=== PATIENT | female | born 1995 | race Caucasian/White ===

== ENCOUNTER 2020-09-04 14:17 | Emergency (ER) | payer BC, SELFPAY ==
--- NOTE | ~2020-09-04 | CT_ITS ---
EXAMINATION: CTA chest PE protocol DATE: 09/04/2020 15:49 INDICATION: Shortness of breath and right-sided back pain TECHNIQUE: Computed tomography (CT) pulmonary angiogram of the chest was performed with 100 mL Omnipa que-350 intravenous contrast. Additional 3D reconstructions utilizing coronal maximum intensity proje ction (MIP) were performed. Automated exposure control and iterative reconstruction technique were em ployed. The dose-length product was 227.94 mGy-cm. COMPARISON: None FINDINGS: Good contrast opacification of the pulmonary arteries. There is moderate streak artifact from dense c ontrast in the superior vena cava and right atrium. Minimal scattered respiratory motion artifact whi ch does not significantly limit evaluation. There are 3 part solid subpleural nodules in the right mi ddle lobe measuring between 7 mm and 9 mm in maximal diameters and one in the left lower lobe with mo re spiculated appearance measuring up to 11 mm with small amount of surrounding groundglass opacity i n the left lower lobe. There are a few additional scattered <4 mm bilateral pulmonary nodules. Minima l dependent atelectasis in the bilateral lower lobes. Normal variant azygos lobe and fissure in the r ight upper lung. Heart size is normal. No pericardial or pleural effusion. Thoracic aorta is normal i n caliber with no dissection. No pathologically enlarged thoracic lymphadenopathy. Small amount of re sidual thymic tissue with typical triangular configuration and mixed fat and soft tissue density in t he anterior mediastinum. Upper abdomen and bones are unremarkable. IMPRESSION: 1. No pulmonary embolism. 2. A few scattered pulmonary nodules including the 3 largest subpleural nodules measuring between 7 m m and 11 mm, one at the left lower lobe and 3 in the right middle lobe which are most likely infectio us/inflammatory in etiology. Malignancy would be highly unlikely given patient age. Reviewed, dictated and finalized at location H. TECH IMPRESSION: 1. No pulmonary embolism. 2. A few scattered pulmonary nodules including the 3 largest subpleural nodules measuring between 7 mm and 11 mm, one at the left lower lobe and 3 in the righ t middle lobe which are most likely infectious/inflammatory in etiology. Malign rosalina would be highly unlikely given patient age.
--- NOTE | ~2020-09-04 | US_ITS ---
EXAMINATION: US right upper quadrant DATE: 09/04/2020 14:58 INDICATION: Right upper quadrant abdominal pain TECHNIQUE: Multiple grayscale and Doppler ultrasound images of the abdomen were obtained. COMPARISON: None FINDINGS: The pancreatic head and body are normal in appearance. The pancreatic tail is not visualized. Liver has normal echogenicity and contour, with a smooth surface. No liver lesion identified. No intrahepat ic biliary duct dilation suspected. Portal venous flow was seen in the hepatopetal, normal direction and has normal Doppler waveform. Visualized proximal inferior vena cava is normal. The gallbladder is normal in appearance. There is no cholelithiasis. The common bile duct measures 4 mm, which is norm al. Sonographic Talbot sign was reported as positive by the junior administrative assistant. Visualized portion of the ri ght kidney demonstrates normal contour with no hydronephrosis. On one of the images there appears to be a geographic region of increased echogenicity. IMPRESSION: 1. Normal gallbladder ultrasound with no evident dilation, wall thickening or cholelithiasis but with positive sonographic Talbot's sign. If there is continued clinical concern for acute cholecystitis c ould consider HIDA scan for further evaluation. 2. Region of increased echogenicity at the upper pole of the right kidney which given otherwise unexp lained right upper quadrant pain raises concern for pyelonephritis. Correlate with urinalysis and for right CVA tenderness. Reviewed, dictated and finalized at [facility]. LOGY TECHNICIAN IMPRESSION: 1. Normal gallbladder ultrasound with no evident dilation, wall thickening or c holelithiasis but with positive sonographic Talbot's sign. If there is continue d clinical concern for acute cholecystitis could consider HIDA scan for further evaluation. 2. Region of increased echogenicity at the upper pole of the right kidney which given otherwise unexplained right upper quadrant pain raises concern for pyelo nephritis. Correlate with urinalysis and for right CVA tenderness.
[2020-09-04 14:19] VITALS: BP 125/75; PULSE 74; RESP 17; TEMP 36.4; O2SAT 100
[2020-09-04 14:50] LABS: Basophils Percent Auto 0.5 % (0.2-1.2); Eosinophils Absolute Auto 0.1 K/mm3 (0-0.3); Eosinophils Percent Auto 1.7 % (0-4.4); Hematocrit 40.6 % (37.0-47.0); Hemoglobin 13.6 g/dL (12.0-15.0); Immature Granulocyte Absolute 0.01 K/mm3 (0.00-0.031); Immature Granulocyte Percent A 0.2 % (0-0.5); Lymphocytes Absolute Auto 1.61 K/mm3 (0.9-3.2); Lymphocytes Percent Auto 24.7 % (18.3-44.2); Mean Corpuscular HGB Conc 33.5 g/dl (32-36); Mean Corpuscular Hemoglobin 29.5 pg (26-34); Mean Corpuscular Volume 88.1 fl (80-100); Mean Platelet Volume 9.1 fl (7.4-10.4); Monocytes Absolute Auto 0.8 K/mm3 (0.1-0.6); Monocytes Percent Auto 12.1 % (2.6-8.5); Neutrophils Percent Auto 60.8 % (45.5-73.1); Platelet Count Result 328 k/mm3 (150-375); Red Blood Count 4.61 M/mm3 (4.2-5.4); Red Cell Distribution Width 14.2 % (11.5-14.5); White Blood Count 6.5 K/mm3 (4.5-10.0)
[2020-09-04 14:54] LABS: Add Urine Microscopic? YES; Appearance Urine Clear (Clear); Bilirubin Urine Negative (Negative); Blood Urine Negative (Negative); Color Urine Yellow (Yellow); Glucose Urine UA Negative (Negative); Ketones Urine Trace mg/dL (Negative); Leukocyte Esterase Ur Negative LEU/UL (Negative); Mucus Urine Heavy /lpf; Nitrate Urine Negative (Negative); Protein Urine 1+ mg/dL (Negative); RBC Urine 0-2 /hpf (0-2); Specific Grav Ur 1.029 (1.001-1.035); Squamous Epithelial Cell Urine Occasional /hpf (Few); Urobilinogen Urine Negative mg/dL (<2.0); WBC Urine 0-3 /hpf
[2020-09-04 15:01] LABS: Potassium 3.7 mmol/L (3.4-5.0)
[2020-09-04 15:06] LABS: Alanine Aminotransferase 12 U/L (4-35); Albumin Level 4.6 g/dL (3.5-5.1); Alkaline Phosphatase 78 U/L (38-126); Anion Gap 11 mmol/L (8-16); Aspartate Amino Transferase 22 U/L (14-36); Bilirubin,Total 0.3 mg/dL (0.2-1.3); Blood Urea Nitrogen 9 mg/dL (7-17); Calcium 9.7 mg/dL (8.4-10.2); Carbon Dioxide 27 mmol/L (22-30); Chloride 103 mmol/L (98-107); Estimated CRCL calculation 95 ml/min; Estimated Glomerular Filt Rate > 60; Glucose 93 mg/dL (65-105); Lipase 68 U/L (23-300); Sodium 141 mmol/L (137-145)
[2020-09-04] MEDS: MORPHINE SULFATE (*CRX) 4 MG/ML INJ IV PUSH (15:10)
[2020-09-04 15:13] VITALS: BP 130/77; PULSE 75; RESP 14; TEMP 36.7; O2SAT 99
--- NOTE | 2020-09-04 15:26 | ED.GENADULT ---
HPI - General Adult General Chief complaint: Abdominal Pain Stated complaint: ABDOMINAL PAIN Time Seen by Provider: 09/04/20 14:33 History of Present Illness HPI narrative: Patient is a 24-year-old female who presents ER with upper abdominal pain and lower chest pain. Began at 3 AM. Worse with deep breath. Makes her want to breathe more shallowly. No nausea or vomiting. Denies runny nose/sore throat/productive cough. No long distance travel. She did drive down from [place] yesterday. No lower extremity swelling or calf pain. Patient has associated pain in her right shoulder is also worsened with deep breath. Related Data Allergies Allergy/AdvReac Type Severity Reaction Status Date / Time cefixime [From Suprax] Allergy Unknown Verified 09/04/20 14:23 Review of Systems Review of Systems: All systems reviewed & are unremarkable except as noted in HPI and below Constitutional: Constitutional: Denies chills, Denies fever(s) and Denies weakness ENT: Denies nasal congestion and Denies sore throat Cardiovascular: Cardiovascular: Reports chest pain, Denies rapid heart rate and Denies radiating jaw, neck or arm pain Respiratory: Respiratory: Denies cough, Denies dyspnea and Denies wheezing Gastrointestinal: Gastrointestinal: Reports abdominal pain, Denies diarrhea, Denies nausea and Denies vomiting Genitourinary: Genitourinary: Denies hematuria, Denies nocturia and Denies dysuria PMFSH Past Medical History Medical History (Updated 09/04/20 @ 16:40 by Too Browning MD) Healthy female adult Surgical History Surgical History (Updated 09/04/20 @ 15:28 by Too Browning MD) No history of previous surgery Social History Social History (Updated 09/04/20 @ 15:28 by Too Browning MD) Smoking status: Never smoker Gender identity (if verbalized by the patient): Female Exam Narrative: Exam Narrative: GENERAL: Well-appearing, well-nourished, and in no acute distress. HEAD: Normocephalic, atraumatic. CHEST: Clear to auscultation. No respiratory distress. HEART: Regular rate and rhythm. Normal peripheral pulses. ABDOMEN: Soft, nontender, nondistended. No CVA tenderness EXTREMITIES: Normal range of motion. No edema. SKIN: Warm, dry, no rash. NEURO: Alert and oriented x3. PSYCH: Normal mood and affect. Course Reevaluation(s) Reevaluation #1: Abdominal and urinary pathology ruled out. Patient seems to have more discomfort with taking a deep breath as opposed with palpation abdomen. Raises concern for PE so CTA will be performed. Patient had mild improvement in discomfort with morphine but we will try Toradol see if we can ease her discomfort more. Date: 09/04/20 Time: 15:29 Reevaluation #2: Informed of results. D/c home. More comfortable with toradol. Date: 09/04/20 Time: 16:36 Vital Signs Vital signs: Vital Signs Temperature 97.5 F L 09/04/20 14:19 Pulse Rate 74 09/04/20 14:19 Respiratory Rate 17 09/04/20 14:19 Blood Pressure 125/75 09/04/20 14:19 Pulse Oximetry 100 09/04/20 14:19 Temperature 98.3 F 09/04/20 16:03 Pulse Rate 74 09/04/20 16:03 Respiratory Rate 20 09/04/20 16:03 Blood Pressure 132/95 H 09/04/20 16:03 Pulse Oximetry 100 09/04/20 16:03 Medical Decision Making Vital Signs Vital Signs: Vital Signs Temperature 97.5 F L 09/04/20 14:19 Pulse Rate 74 09/04/20 14:19 Respiratory Rate 17 09/04/20 14:19 Blood Pressure 125/75 09/04/20 14:19 Pulse Oximetry 100 09/04/20 14:19 Temperature 98.3 F 09/04/20 16:03 Pulse Rate 74 09/04/20 16:03 Respiratory Rate 20 09/04/20 16:03 Blood Pressure 132/95 H 09/04/20 16:03 Pulse Oximetry 100 09/04/20 16:03 Lab Data Result diagrams: 09/04/20 14:24 09/04/20 14:24 Labs: Lab Results 09/04/20 09/04/20 09/04/20 Range/Units 14:24 14:24 14:44 WBC 6.5 (4.5-10.0) K/mm3 RBC 4.61 (4.2-5.4) M/mm3 Hgb 13.6 (12.0-15.0) g/dL Hct 40
[2020-09-04] MEDS: KETOROLAC 30 MG/ML VIAL (*BKC) IV PUSH (16:01)
[2020-09-04 16:03] VITALS: BP 132/95; PULSE 74; RESP 20; TEMP 36.8; O2SAT 100
--- NOTE | 2020-09-04 16:31 | PC.NURSE ---
Covid swab obtained and sent to lab
[2020-09-04 16:46] VITALS: BP 131/70; PULSE 78; RESP 16; TEMP 36.6; O2SAT 99
[2020-09-05 22:24] LABS: SARS-CoV-2 RNA PCR Negative
== END 2020-09-04 17:01 | disposition home or self-care (01) ==
PROVIDERS: Emergency Provider Emergency Medicine
DX: J18.9 Pneumonia, unspecified organism (principal); R09.1 Pleurisy; Z20.828 Contact with and (suspected) exposure to other viral communicable diseases; R91.8 Other nonspecific abnormal finding of lung field
CPT/HCPCS: 36415; 71275; 76705; 80053; 81001; 81025; 83690; 85025; 87635; 96374; 96375; 99284; C9803; J1885; J2270; Q9967; U0003

== ENCOUNTER 2020-09-04 21:01 | Inpatient (IN) | payer BC, SELFPAY ==
--- NOTE | ~2020-09-04 | CT_ITS ---
EXAMINATION: CT abdomen pelvis w con DATE: 09/04/2020 22:10 INDICATION: Right upper quadrant abdominal pain TECHNIQUE: Computed tomography (CT) of the abdomen and pelvis was performed with 100 mL Omnipaque-350 intravenous contrast. Automated exposure control and iterative reconstruction technique were employe d. The dose-length product was 396.34 mGy-cm. COMPARISON: CT chest dated 09/04/2020 FINDINGS: Again seen is a small region of groundglass opacity right posterior sulcus a couple pleural-based nod ular opacities at the lateral right costophrenic angle and at the posterolateral aspect of the left h emidiaphragm which are likely infectious/inflammatory in etiology. Heart size is normal. No pericardi al or pleural effusion. Tiny region of focal hepatic steatosis at the ligamentum teres. Gallbladder, spleen, pancreas, bilateral adrenal glands and kidneys are normal. Normal appendix. No abnormal bowel wall thickening or obstruction. Contrast in the bladder from the earlier contrast-enhanced chest CT. Gas containing tampon within the vaginal vault. Uterus and bilateral adnexa are unremarkable. No amol e intraperitoneal gas or fluid. No pathologically enlarged abdominal or pelvic lymphadenopathy. Bones are unremarkable. IMPRESSION: 1. Redemonstration of mild bibasilar opacities which are likely infectious/inflammatory in etiology. 2. No acute intra-abdominal/pelvic process. Specifically gallbladder and appendix are normal. Reviewed, dictated and finalized at location . EMS PROGRAM MANAGER IMPRESSION: 1. Redemonstration of mild bibasilar opacities which are likely infectious/infl ammatory in etiology. 2. No acute intra-abdominal/pelvic process. Specifically gallbladder and append ix are normal.
--- NOTE | ~2020-09-04 | NM_ITS ---
. EXAMINATION: NM hepatobiliary w pharm DATE: 09/06/2020 12:46 INDICATION: Right upper quadrant abdominal pain. COMPARISON: CT abdomen and pelvis 09/04/2020 TECHNIQUE: 4.6 mCi Tc-99m mebrofenin (Choletec) was administered intravenously. Scintigraphic images of the abdomen were obtained for one hour. Then, 1.46 mcg sincalide (Kinevac) IV was administered, a nd imaging was continued for 30 minutes. FINDINGS: There is normal clearance of radiotracer from the blood pool. There is homogeneous tracer u ptake by the liver. Activity progresses to the bowel and gallbladder. Gallbladder ejection fraction (GBEF) was 22%. Note that most patients with gallbladder dysfunction have GBEF < 35%, which overlaps with the broad normal range of 10-90%. IMPRESSION: 1. Gallbladder ejection fraction in the lower range of normal. Note that this value overlaps with th e range of values that may be seen with gallbladder dysfunction and/or chronic cholecystitis if there is appropriate clinical correlation. Reviewed, dictated and finalized at location A. TERINTELLIGENCE SPECIALIST IMPRESSION: 1. Gallbladder ejection fraction in the lower range of normal. Note that this value overlaps with the range of values that may be seen with gallbladder dysfu nction and/or chronic cholecystitis if there is appropriate clinical correlatio [place]
[2020-09-04 21:08] VITALS: BP 128/90; PULSE 130; RESP 18; TEMP 36.8; O2SAT 97
--- NOTE | 2020-09-04 21:41 | ED.ABDPAIN ---
HPI - Abdominal Pain General Chief Complaint: Abdominal Pain Stated Complaint: pain with inspiration Time Seen by Provider: 09/04/20 21:12 History of Present Illness HPI narrative: Patient is a 24-year-old female who presents ER with right upper quadrant abdominal pain. Patient was seen earlier in the day and had a CTA of her chest as well as a right upper quadrant ultrasound. Her lab work was unremarkable at that time, her CTA showed lung nodules with some groundglass. Studies concerning for infectious process. She is started on antibiotics and swab for Covid. An ultrasound of her abdomen did not show any disease of the gallbladder. There was some increased echogenicity of the kidney but no evidence of infection in the urine. Patient was lying in bed at home when her pain significantly increased 2 hours ago. She is found no aggravating or alleviating factors was distress to the point that she needed to return to the ER. No additional change in symptoms. Related Data Allergies Allergy/AdvReac Type Severity Reaction Status Date / Time cefixime [From Suprax] Allergy Unknown Verified 09/04/20 21:14 Review of Systems Review of Systems: All systems reviewed & are unremarkable except as noted in HPI and below Constitutional: Constitutional: Denies chills, Denies fever(s) and Denies weakness ENT: Denies nasal congestion and Denies sore throat Cardiovascular: Cardiovascular: Reports chest pain, Denies rapid heart rate and Denies radiating jaw, neck or arm pain Respiratory: Respiratory: Denies cough, Reports dyspnea and Denies wheezing Gastrointestinal: Gastrointestinal: Reports abdominal pain, Denies diarrhea, Denies nausea and Denies vomiting PMFSH Past Medical History Medical History (Updated 09/04/20 @ 23:55 by Too Browning MD) Healthy female adult Surgical History Surgical History (Updated 09/04/20 @ 15:28 by Too Browning MD) No history of previous surgery Social History Social History (Updated 09/04/20 @ 15:28 by Too Browning MD) Smoking status: Never smoker Gender identity (if verbalized by the patient): Female Exam Narrative: Exam Narrative: GENERAL: Uncomfortable l-appearing, well-nourished, and in mild distress. HEAD: Normocephalic, atraumatic. ENT: Mucous membranes moist. CHEST: Clear to auscultation. No respiratory distress. HEART: Tachycardic regular normal peripheral pulses. ABDOMEN: Soft, mild right upper quadrant tenderness without guarding, nondistended. EXTREMITIES: Normal range of motion. No edema. SKIN: Warm, dry, no rash. NEURO: Alert and oriented x3. Course Course Emergency Course: Admit to the hospitalist service this patient has having recurrent persistent severe pain. Patient will likely require a HIDA scan to further evaluate whether she has gallbladder pathology causing her discomfort. Vital Signs Vital signs: Vital Signs Temperature 98.2 F 09/04/20 21:08 Pulse Rate 130 H 09/04/20 21:08 Respiratory Rate 18 09/04/20 21:08 Blood Pressure 128/90 09/04/20 21:08 Pulse Oximetry 97 09/04/20 21:08 Temperature 98.2 F 09/04/20 21:08 Pulse Rate 118 H 09/04/20 22:20 Respiratory Rate 18 09/04/20 22:20 Blood Pressure 119/70 09/04/20 22:20 Pulse Oximetry 99 09/04/20 22:20 MDM - Abdominal Pain Lab Data Result diagrams: 09/04/20 21:51 09/04/20 21:51 Labs: Lab Results 09/04/20 09/04/20 Range/Units 21:51 21:51 WBC 6.4 (4.5-10.0) K/mm3 RBC 4.16 L (4.2-5.4) M/mm3 Hgb 12.2 (12.0-15.0) g/dL Hct 35.9 L (37.0-47.0) % MCV 86.3 (80-100) fl MCH 29.3 (26-34) pg MCHC 34.0 (32-36) g/dl RDW 14.1 (11.5-14.5) % Plt Count 293 (150-375) k/mm3 MPV 9.1 (7.4-10.4) fl Immature Gran % (Auto) 0.2 (0-0.5) % Neut % (Auto) 53.9 (45.5-73.1) % Lymph % (Auto) 28.7 (18.3-44.2) % [place] % (Auto) 14.7 H (2.6-8.5) % Eos % (Auto) 2.2 (0-4.4) % Baso % (Auto) 0.3 (0
[2020-09-04] MEDS: HYDROmorphone HCL INJ (*CRX) 1 MG/ML SYR IV PUSH (21:45)
[2020-09-04] MEDS: SODIUM CHLORIDE 0.9% IV 1,000 ML 999 ML IV CONT (21:45)
[2020-09-04 22:02] LABS: Basophils Percent Auto 0.3 % (0.2-1.2); Eosinophils Absolute Auto 0.1 K/mm3 (0-0.3); Eosinophils Percent Auto 2.2 % (0-4.4); Hematocrit 35.9 % (37.0-47.0); Hemoglobin 12.2 g/dL (12.0-15.0); Immature Granulocyte Absolute 0.01 K/mm3 (0.00-0.031); Immature Granulocyte Percent A 0.2 % (0-0.5); Lymphocytes Absolute Auto 1.83 K/mm3 (0.9-3.2); Lymphocytes Percent Auto 28.7 % (18.3-44.2); Mean Corpuscular Hemoglobin 29.3 pg (26-34); Mean Corpuscular Volume 86.3 fl (80-100); Mean Platelet Volume 9.1 fl (7.4-10.4); Monocytes Absolute Auto 0.9 K/mm3 (0.1-0.6); Monocytes Percent Auto 14.7 % (2.6-8.5); Neutrophils Absolute Auto 3.4 K/mm3 (1.3-6.7); Neutrophils Percent Auto 53.9 % (45.5-73.1); Platelet Count Result 293 k/mm3 (150-375); Red Blood Count 4.16 M/mm3 (4.2-5.4); Red Cell Distribution Width 14.1 % (11.5-14.5); White Blood Count 6.4 K/mm3 (4.5-10.0)
[2020-09-04 22:20] VITALS: BP 119/70; PULSE 118; RESP 18; O2SAT 99
[2020-09-04 22:22] LABS: Alanine Aminotransferase 11 U/L (4-35); Alkaline Phosphatase 77 U/L (38-126); Anion Gap 8 mmol/L (8-16); Aspartate Amino Transferase 22 U/L (14-36); Bilirubin,Total 0.3 mg/dL (0.2-1.3); Blood Urea Nitrogen 11 mg/dL (7-17); Calcium 8.9 mg/dL (8.4-10.2); Carbon Dioxide 26 mmol/L (22-30); Chloride 106 mmol/L (98-107); Estimated CRCL calculation 99 ml/min; Estimated Glomerular Filt Rate > 60; Glucose 100 mg/dL (65-105); Lipase 98 U/L (23-300); Potassium 3.7 mmol/L (3.4-5.0); Sodium 140 mmol/L (137-145)
--- NOTE | 2020-09-04 22:50 | PC.NURSE ---
Addendum entered by Izabella Thompson RN 09/04/20 23:03: pt called out and stated her pain has increased. notified Original Note: pt called out and stated her pain has increased. noted.
[2020-09-04] MEDS: MORPHINE SULFATE (*CRX) 4 MG/ML INJ IV PUSH (23:09)
[2020-09-05] VITALS (9 sets, daily range): BP systolic 111–129; BP diastolic 60–73; PULSE 83–120; RESP 16–20; TEMP 36.4–37.1; O2SAT 98–100; BMI 26.6
[2020-09-05] MEDS: HYDROmorphone HCL INJ (*CRX) 1 MG/ML SYR 0.5 MG IV PUSH ×7 (00:17→23:48)
--- NOTE | 2020-09-05 00:41 | PM.IMHP ---
H&P: HPI History of Present Illness Date/Time: 09/04/20 23:30 Chief complaint: RUQ pain, COVID PUI Narrative: This is a pleasant 24-year-old female with no past medical history who presented to the [facility] for return visit for right upper quadrant pain that began around 3:00 a.m. this morning. the patient states that her right upper quadrant pain is worse with any deep breathing and seems to radiate towards her right shoulder. The patient has tried [id number] NSAIDs which have not been helpful. She was evaluated earlier in the day and had CTA of her chest done as well as a right upper quadrant ultrasound which were unremarkable other than some scattered pulmonary nodules. Right upper quadrant ultrasound demonstrated a normal size gallbladder without any wall thickening. She was sent home earlier today with Azithromycin and she returned to the hospital [facility] with ongoing severe RUQ pain. CT abd/pelvis was performed which demonstrated mild bibasilar opacities but no abdominal pathology. She was swabbed for COVID-19. On my encounter with her she denies any fevers, chills, headache, chest pain, palpitations, shortness of breath, nausea, vomiting, cough, congestion, diarrhea, dysuria, hematuria, rectal bleeding or LE swelling. She also denies any rashes. She did have a sore throat last Sunday. We were asked to admit the patient to the hospital for possible HIDA scan and pain control. She has no other complaints. Review of Systems Review of Systems: All systems reviewed & are unremarkable except as noted in HPI and below PMFSH Past Medical History Medical History Healthy female adult Surgical History Surgical History No history of previous surgery Social History Social History Smoking status: Never smoker Alcohol intake: never Substance use: never Substance use type: does not use Gender identity (if verbalized by the patient): Female Spiritual care concerns: No Comments Past family medical history is reviewed and noncontributory. Meds Home Medications and Allergies Home Medications Medication Instructions Recorded Confirmed Type azithromycin See Rx Instructions .ROUTE 09/04/20 Rx .COMPLEX #6 tablet naproxen 500 mg PO BID #20 tablet 09/04/20 Rx Allergies Allergy/AdvReac Type Severity Reaction Status Date / Time cefixime [From Suprax] Allergy Unknown Verified 09/04/20 21:14 Vital Signs Vital Signs - 24 hr 09/04/20 21:08 09/04/20 22:20 09/05/20 00:19 Temperature 36.8 C Pulse Rate 130 H 118 H 120 H Respiratory Rate 18 18 18 Blood Pressure 128/90 119/70 128/70 Pulse Oximetry 97 99 99 09/05/20 00:27 Temperature Pulse Rate 120 H Respiratory Rate 18 Blood Pressure 128/70 Pulse Oximetry 99 Exam Const: General: cooperative, alert, awake, acute distress moderate and ill appearing Nutritional Appearance: well nourished Orientation/consciousness: patient oriented x3 HENMT: Head: normal to inspection General nose exam: Normal external nose present Face and sinus: normal facial exam Mouth: Yes Normal oral and palatal mucosa present and Yes oropharynx normal Eyes: Pupils: Equal, round and reactive pupils present EOM: EOMs intact bilaterally Neck: Neck: supple and no JVD Thyroid: thyroid normal Lymphatic: lymphadenopathy not noted Resp: Effort & Inspection: normal respiratory effort Auscultation: clear to auscultation bilaterally Cardio: Rate: regular rate Rhythm: regular rhythm Heart sounds: no murmurs GI: Inspection: normal to inspection and non-distended GI Palp: Yes abdominal tenderness (RUQ++ ), No Guarding due to palpation present (GI), No Rigid due to palpation, No Rebound tenderness present and Yes Other GI palpation findings present (Talbot sign++) Auscultation: normal bowel erin
--- NOTE | 2020-09-05 00:46 | ADMGEN ---
This patient, Blanca Johnson, was admitted to [facility] Surg Room 300-01. Patient/family oriented to hospital policies and general routines including ID bracelet, bed and alarms, visiting hours, pain management, procedures, bathroom and other care routines, personal items, smoking policy, room service/diet, and visiting hours. Information on how to activate the Rapid Response Team has been discussed. Patient/Family are encouraged to report perceived risks to care and to ask questions if they do not understand what they are told or what they should do.
[2020-09-05] MEDS: SODIUM CHLORIDE 0.9% IV 1,000 ML 125 ML IV CONT ×3 (02:59→19:58)
[2020-09-05 06:17] LABS: Basophils Percent Auto 0.4 % (0.2-1.2); Eosinophils Absolute Auto 0.1 K/mm3 (0-0.3); Eosinophils Percent Auto 1.5 % (0-4.4); Hematocrit 32.5 % (37.0-47.0); Hemoglobin 10.7 g/dL (12.0-15.0); Immature Granulocyte Absolute 0.02 K/mm3 (0.00-0.031); Immature Granulocyte Percent A 0.3 % (0-0.5); Lymphocytes Absolute Auto 2.02 K/mm3 (0.9-3.2); Lymphocytes Percent Auto 28.1 % (18.3-44.2); Mean Corpuscular HGB Conc 32.9 g/dl (32-36); Mean Corpuscular Hemoglobin 28.7 pg (26-34); Mean Corpuscular Volume 87.1 fl (80-100); Mean Platelet Volume 9.5 fl (7.4-10.4); Monocytes Percent Auto 14.2 % (2.6-8.5); Neutrophils Percent Auto 55.5 % (45.5-73.1); Platelet Count Result 267 k/mm3 (150-375); Red Blood Count 3.73 M/mm3 (4.2-5.4); Red Cell Distribution Width 14.3 % (11.5-14.5); White Blood Count 7.2 K/mm3 (4.5-10.0)
[2020-09-05 06:36] LABS: Anion Gap 5 mmol/L (8-16); Blood Urea Nitrogen 8 mg/dL (7-17); Calcium 8.4 mg/dL (8.4-10.2); Carbon Dioxide 27 mmol/L (22-30); Chloride 107 mmol/L (98-107); Estimated CRCL calculation 129 ml/min; Estimated Glomerular Filt Rate > 60; Glucose 88 mg/dL (65-105); Potassium 3.7 mmol/L (3.4-5.0); Sodium 139 mmol/L (137-145)
--- NOTE | 2020-09-05 08:38 | ECG_ITS ---
Measurements Intervals [place] Rate: 77 P: 29 MI: 151 QRS: 17 QRSD: 82 T: -17 QT: 396 QTc: 450 Interpretive Statements SINUS RHYTHM NONSPECIFIC T-WAVE ABNORMALITY- ANTEROLAT/INF LEADS BORDERLINE ECG Electronically Signed On 09-05-2020 17:08:30 STATISTICS TUTOR by Walt Rivera D.O.
[2020-09-05] MEDS: AZITHROMYCIN 250 MG TABLET BY MOUTH (09:46)
[2020-09-05 10:00] LABS: Monoscreen Negative (Negative); Negative Monotest Control Negative (Negative); Positive Monotest Control Positive (Positive)
[2020-09-05 10:07] LABS: Troponin I < 0.012 ng/mL (0.000-0.034)
--- NOTE | 2020-09-05 15:51 | PM.IMPN ---
Progress Note: A&P Assessment and Plan (1) Pleurisy: Code(s): R09.1 - Pleurisy Status: Acute Assessment and Plan: Patient presents with right lower ribcage/RUQ pain that is worse with deep breaths. CTA chest shows no pulmonary embolism or pneumothorax; shows multiple pulmonary nodules with surrounding ground glass appearance consistent with infection/inflammation. CT abdomen/pelvis shows no acute abdominal pathology. EKG normal and troponin normal. Lipase normal. Check SARAH. Differentials include pleuritis secondary to pneumonia, gallbladder dysfunction, peptic ulcer disease. NPO in the AM for HIDA scan tomorrow. Continue pain control (but avoid narcotics in the four hours prior to HIDA), continue to treat for pneumonia, continue pepcid, await COVID results. Incentive spirometry. (2) Abdominal pain, RUQ: Code(s): R10.11 - Right upper quadrant pain Status: Acute Assessment and Plan: Abdominal pain vs. pleuritic pain. Appreciate Dr Yates's recommendations. He started pepcid, ordered H pylori stool antigen and we will await HIDA results tomorrow. Tolerating clear liquid diet today. (3) Pneumonia: Qualifiers: Pneumonia type: due to unspecified organism Laterality: bilateral Lung location: unspecified part of lung Qualified Code(s): J18.9 - Pneumonia, unspecified organism Code(s): J18.9 - Pneumonia, unspecified organism Status: Acute Assessment and Plan: FEI pulmonary nodules on CTA appear consistent with infection. Continue azithromycin (day 2). (4) Person under investigation for COVID-19: Code(s): Z20.828 - Contact with and (suspected) exposure to other viral communicable diseases Status: Acute Assessment and Plan: COVID results pending. Continue droplet isolation. Continue supportive care. Subjective Date/time seen: 09/05/20 1430 Interval history: Ms. Johnson is a pleasant 24yo F admitted for management and evaluation of sudden onset right ribcage/RUQ pain. She further describes the pain as sharp/stabbing just under her right breast and wraps around to her back with some additional pain in right back/shoulder that is worse with movement or deep breaths. She is taking shallow breaths to avoid the pain. This pain woke her from her sleep 0300 09/03. She denies nausea, vomiting, constipation, or diarrhea. Denies previously feeling short of breath or coughing much. She did have some fried foods [place] evening prior to the initial onset of pain however she cannot determine now if there is any pattern of increased pain after eating. Review of Systems Review of Systems: All systems reviewed & are unremarkable except as noted in HPI and below Exam Narrative: Exam Narrative: General: Female resting supine in bed in no acute distress. She becomes tearful as I roll her over to left side to auscultate posterior lung hall. HEENT: Normocephalic, EOMI, oral mucosa moist. Cardiovascular: Rate and rhythm are regular. No notable murmur, rub, or gallop. Respiratory: Decreased breath sounds bilaterally. Non-labored breathing. Tolerating room air. Abdomen: Non-distended, bowel sounds present. Extremities: Peripheral pulses intact. No edema. Neuro: No focal neurological deficits. Speech is clear. Objective Data Vital Signs Vital Signs: Last Vital Signs Temp 97.6 F 09/05/20 12:00 Pulse 87 09/05/20 12:00 Resp 16 09/05/20 12:00 BP 116/62 09/05/20 12:00 Pulse Ox 99 09/05/20 12:00 Intake/Output Intake/Output: Intake & Output 09/02/20 09/03/20 09/04/20 09/05/20 23:59 23:59 23:59 23:59 Intake Total 1000 Balance 1000 Meds/Results Medications: Active Medications Generic Name Dose Route Start Last Admin Trade Name Freq PRN Reason Stop Dos
--- NOTE | 2020-09-05 16:54 | PM.CNGS ---
Assessment and Plan Assessment and plan (1) Abdominal pain, RUQ: Onset Date: ~09/04/20 Code(s): R10.11 - Right upper quadrant pain Status: Acute Assessment and Plan: This is the main reason for my consultation. Agree with proceeding to HIDA scan. Have discussed with the patient that if that is normal may need to consider upper GI endoscopy to rule out gastritis or duodenitis or duodenal ulcer. The patient typically has not been taking frequent NSAIDs. She has never been tested for H pylori. I ordered a H pylori stool antigen test. We will await the results of the HIDA scan I have explained the test to her. She will check with her mother to see if she had gallstones and also whether not her grandmother on the maternal side had gallstones and gallbladder issues. Patient has 1 older sister who has some children who has not had gallbladder issues. Thank you for allowing participate this pleasant patient's care we will follow with you. (2) Pneumonia: Qualifiers: Laterality: bilateral Lung location: unspecified part of lung Pneumonia type: due to unspecified organism Qualified Code(s): J18.9 - Pneumonia, unspecified organism Code(s): J18.9 - Pneumonia, unspecified organism Status: Acute (3) Monocytosis: Code(s): D72.821 - Monocytosis (symptomatic) Status: Acute (4) Pleurisy: Code(s): R09.1 - Pleurisy Status: Acute (5) Person under investigation for COVID-19: Onset Date: Unknown Code(s): Z20.828 - Contact with and (suspected) exposure to other viral communicable diseases Status: Acute Assessment and Plan: Patient has been halfway in at home working from home has not had any obvious COVID exposures that she knows of. She is not running a fever having a cough. Additional Plan In case patient is experiencing pain from duodenitis or gastritis have started Pepcid b.i.d.. Will await HIDA scan results and stool antigens test for H pylori. History of Present Illness Consult details Consult date: 09/05/20 Reason for consult: abdominal pain Requesting physician: Gil Earl MD Narrative: This is a pleasant 24-year-old female with no past medical history who presented to the hospital yesterday X 2. Chief complaint is right upper quadrant pain that began around 3:00 a.m. this Sunday morning. patient states she was driving from [facility] to her 's family's house here in the [facility]. On the way they stopped and had fried chicken sandwich and fried much for a cheese sticks. She did not feel poorly when she went to bed although she felt as if she had a kink in her neck and so she had her cracker back. She went to sleep and slept well until 3:00 a.m.. The patient states that her right upper quadrant pain is worse with any deep breathing and seems to radiate towards her right shoulder. The patient has tried [id number] NSAIDs which have not been helpful. After her initial visit to the ER yesterday she was also started on Z-Ck for small punctate areas of abnormality in the lungs. She was evaluated earlier in the day and had CTA of her chest done as well as a right upper quadrant ultrasound which were unremarkable other than some scattered pulmonary nodules/ areas of puctate inflammation doubtful for tumor per radiologist. Right upper quadrant ultrasound demonstrated a normal size gallbladder without any wall thickening and no gallstones. Of note the patient states that her mother had gallbladder problems and had emergency surgery to remove it. She is unsure whether mother had gallstones or not. She was sent home earlier the day on Sat. with Azithromycin and she returned to the hospital lat night with ongoing severe RUQ pain. CT abd/pelvis was performed then inthe last evening last night, which demonstrated mild bibasilar opacities in the lungs, but no abdominal pathology. She was swabbed for C
[2020-09-05] MEDS: HYDROcodone/acetaminophen (*CRX) 5-325 MG TABLET 1 TAB PO (17:07)
[2020-09-05] MEDS: FAMOTIDINE 20 MG/2 ML VIAL IV PUSH (20:15)
[2020-09-06] MEDS: KETOROLAC 15 MG/ML VIAL (*BKC) IV PUSH (05:15)
[2020-09-06 05:56] LABS: Alanine Aminotransferase 9 U/L (4-35); Albumin Level 3.7 g/dL (3.5-5.1); Alkaline Phosphatase 68 U/L (38-126); Anion Gap 8 mmol/L (8-16); Aspartate Amino Transferase 20 U/L (14-36); Bilirubin,Total 0.5 mg/dL (0.2-1.3); Blood Urea Nitrogen 5 mg/dL (7-17); Calcium 8.8 mg/dL (8.4-10.2); Carbon Dioxide 24 mmol/L (22-30); Chloride 105 mmol/L (98-107); Estimated CRCL calculation 129 ml/min; Estimated Glomerular Filt Rate > 60; Glucose 77 mg/dL (65-105); Magnesium 1.9 mg/dL (1.6-2.3); Potassium 3.9 mmol/L (3.4-5.0); Sodium 137 mmol/L (137-145)
[2020-09-06 06:00] VITALS: BP 123/60; PULSE 79; RESP 18; TEMP 36.3; O2SAT 96
[2020-09-06 06:03] LABS: Basophils Percent Auto 0.1 % (0.2-1.2); Eosinophils Absolute Auto 0.2 K/mm3 (0-0.3); Eosinophils Percent Auto 2.8 % (0-4.4); Hematocrit 32.7 % (37.0-47.0); Immature Granulocyte Absolute 0.01 K/mm3 (0.00-0.031); Immature Granulocyte Percent A 0.1 % (0-0.5); Lymphocytes Percent Auto 27.5 % (18.3-44.2); Mean Corpuscular HGB Conc 33.6 g/dl (32-36); Mean Corpuscular Hemoglobin 28.8 pg (26-34); Mean Corpuscular Volume 85.6 fl (80-100); Mean Platelet Volume 9.5 fl (7.4-10.4); Monocytes Absolute Auto 0.9 K/mm3 (0.1-0.6); Monocytes Percent Auto 12.4 % (2.6-8.5); Neutrophils Absolute Auto 4.2 K/mm3 (1.3-6.7); Neutrophils Percent Auto 57.1 % (45.5-73.1); Platelet Count Result 291 k/mm3 (150-375); Red Blood Count 3.82 M/mm3 (4.2-5.4); Red Cell Distribution Width 14.1 % (11.5-14.5); White Blood Count 7.3 K/mm3 (4.5-10.0)
[2020-09-06] MEDS: SODIUM CHLORIDE 0.9% IV 1,000 ML 125 ML IV CONT ×2 (06:23→16:29)
--- NOTE | 2020-09-06 09:25 | PM.PNGS ---
Progress Note: A&P Assessment and Plan (1) Abdominal pain, RUQ: Onset Date: ~09/04/20 Code(s): R10.11 - Right upper quadrant pain Status: Acute Assessment and Plan: Patient with RUQ abdominal pain and right-sided chest pain. Pain has improved today. Still required both oral and IV pain medication overnight. HIDA scan ordered for today to further evaluate the gallbladder as a cause for the pain. H.pylori stool antigen ordered. May need to consider GI consultation if the HIDA is normal and RUQ abdominal pain persists. Will await HIDA results. (2) Pneumonia: Qualifiers: Laterality: bilateral Lung location: unspecified part of lung Pneumonia type: due to unspecified organism Qualified Code(s): J18.9 - Pneumonia, unspecified organism Code(s): J18.9 - Pneumonia, unspecified organism Status: Acute Assessment and Plan: CTA with isacc. pulmonary nodules consistent with infection. Being treated with oral Azithromycin. Management per Hospitalist. (3) Monocytosis: Code(s): D72.821 - Monocytosis (symptomatic) Status: Acute (4) Pleurisy: Code(s): R09.1 - Pleurisy Status: Acute (5) Person under investigation for COVID-19: Onset Date: Unknown Code(s): Z20.828 - Contact with and (suspected) exposure to other viral communicable diseases Status: Acute Assessment and Plan: COVID test negative. Additional Plan Discussed the patient's plan of care with Dr. Yates. Subjective Subjective Date/Time Seen: 09/06/20 09:25 Patient reports: no new complaints, feels better and pain is less Interval history: Patient seen and examined this morning. She is NPO for planned HIDA scan today. Reports having some clear liquids last night for dinner and did have an increase in her abdominal and chest pain after that, but states she had also moved around a lot around the time she was eating. So she was unable to tell if it was because of eating or her activity. No nausea or vomiting. No other complaints at this time. Review of Systems Review of Systems: All systems reviewed & are unremarkable except as noted in HPI and below Exam Const: General: cooperative, comfortable, alert and awake Nutritional Appearance: average body habitus Orientation/consciousness: patient oriented x3 Resp: Effort & Inspection: normal respiratory effort and able to speak in complete sentences GI: Inspection: non-distended GI Palp: Yes Soft to palpation, Yes Tenderness to palpation present (GI) (epigastric and worse in RUQ ), No Guarding due to palpation present (GI) and No Rebound tenderness present Auscultation: normal bowel sounds Skin: General skin exam: normal color Neuro: General: patient oriented x3 and no focal motor deficits Speech: normal speech Extrem: General: normal to inspection, full ROM and no clubbing, cyanosis or edema Psych: Appearance: grossly normal Mental Status: mental status grossly normal Insight: Good insight present (Psych) Judgement: Good judgement present (Psych) Objective Data Vital Signs Vital Signs: Vital Signs - 24 hr 09/05/20 12:00 09/05/20 16:00 09/05/20 20:00 Temperature 97.6 F 97.8 F 98.1 F Pulse Rate 87 89 86 Respiratory Rate 16 16 18 Blood Pressure 116/62 129/73 111/60 Pulse Oximetry 99 98 100 09/05/20 20:10 09/06/20 06:00 Temperature 97.3 F L Pulse Rate 86 79 Respiratory Rate 18 18 Blood Pressure 123/60 Pulse Oximetry 100 96 Intake/Output Intake/Output: Intake & Output 09/03/20 09/04/20 09/05/20 09/06/20 23:59 23:59 23:59 23:59 Intake Total 2790 1550 Balance 2790 1550 Meds/Results Medications: Active Medications Generic Name Dose Route Start Last Admin Trade Name Freq PRN Reason Stop Dose Admin Hydrocodone Bitart/Acetaminophen 1 tab 09/05/20 13:46 09/05/20 17:07 Hydrocodone/Acetaminophen (*Crx) 5-325 Mg Tablet PO 1 tab Q4H PRN Administration Pain Rated 6 or Greater Brice
--- NOTE | 2020-09-06 10:18 | PC.NURSE ---
nuc med here to take pt to here scan
[2020-09-06] MEDS: AZITHROMYCIN 250 MG TABLET BY MOUTH (12:02)
[2020-09-06] MEDS: FAMOTIDINE 20 MG/2 ML VIAL IV PUSH ×2 (12:02→19:45)
[2020-09-06] MEDS: HYDROmorphone HCL INJ (*CRX) 1 MG/ML SYR 0.5 MG IV PUSH (12:07)
[2020-09-06 14:00] VITALS: BP 117/65; PULSE 80; RESP 18; TEMP 36.7; O2SAT 99
[2020-09-06] MEDS: HYDROcodone/acetaminophen (*CRX) 5-325 MG TABLET 1 TAB PO ×3 (14:46→22:53)
--- NOTE | 2020-09-06 15:21 | PM.IMPN ---
Progress Note: A&P Assessment and Plan (1) Pleurisy: Code(s): R09.1 - Pleurisy Status: Acute Assessment and Plan: Patient presents with right lower ribcage/RUQ pain that is worse with deep breaths. CTA chest shows no pulmonary embolism or pneumothorax; demonstrates multiple pulmonary nodules with surrounding ground glass appearance consistent with infection/inflammation. COVID negative. CT abdomen/pelvis shows no acute abdominal pathology. EKG normal and troponin normal. Lipase normal. Check SARAH; no history of rheumatologic disease. Working differentials at this time include pleuritis secondary to pneumonia, gallbladder dysfunction, peptic ulcer disease. Continue pain control, continue to treat for pneumonia, continue pepcid. Incentive spirometry. (2) Abdominal pain, RUQ: Onset Date: ~09/04/20 Code(s): R10.11 - Right upper quadrant pain Status: Acute Assessment and Plan: Abdominal pain vs. pleuritic pain. Etiology is unclear, see above. Appreciate Dr Yates's recommendations. He started pepcid, ordered H pylori stool antigen. HIDA shows gallbladder EF on lower end of normal. Clear liquid diet for now and appreciate further input from surgery. If no plan for cholecystectomy, could consider GI evaluation if she continues to have pain. (3) Pneumonia: Qualifiers: Pneumonia type: due to unspecified organism Laterality: bilateral Lung location: unspecified part of lung Qualified Code(s): J18.9 - Pneumonia, unspecified organism Code(s): J18.9 - Pneumonia, unspecified organism Status: Acute Assessment and Plan: FEI pulmonary nodules on CTA appear consistent with infection. Continue azithromycin (day 3). (4) Person under investigation for COVID-19: Onset Date: Unknown Code(s): Z20.828 - Contact with and (suspected) exposure to other viral communicable diseases Status: Ruled-out Assessment and Plan: COVID negative. Subjective Date/time seen: 09/06/20 1330 Interval history: Ms. Johnson is a pleasant 24yo F admitted for management and evaluation of sudden onset right ribcage/RUQ pain. She further describes the pain as sharp/stabbing just under her right breast and wraps around to her back with some additional pain in right back/shoulder that is worse with movement or deep breaths. Today she notes it does extend to epigastric area which is new from yesterday. She is taking shallow breaths to avoid the pain. She denies nausea, vomiting, constipation, or diarrhea. No cough or fever. She did have some fried foods [place] evening prior to the initial onset of pain however she cannot determine now if there is any pattern of increased pain after eating because she has no appetite. Review of Systems Review of Systems: All systems reviewed & are unremarkable except as noted in HPI and below Exam Narrative: Exam Narrative: General: Female resting supine in bed in no acute distress. HEENT: Normocephalic, EOMI, oral mucosa moist. Cardiovascular: Rate and rhythm are regular. No notable murmur, rub, or gallop. Respiratory: Decreased breath sounds bilaterally. Non-labored breathing. Tolerating room air. Abdomen: Soft, non-distended, bowel sounds present. RUQ and epigastric tenderness to palpation without guarding. Extremities: Peripheral pulses intact. No edema. Neuro: No focal neurological deficits. Speech is clear. Objective Data Vital Signs Vital Signs: Last Vital Signs Temp 98.0 F 09/06/20 14:00 Pulse 80 09/06/20 14:00 Resp 18 09/06/20 14:00 BP 117/65 09/06/20 14:00 Pulse Ox 99 09/06/20 14:00 Intake/Output Intake/Output: Intake & Output 09/03/20 09/04/20 09/05/20 09/06/20 23:59 23:59 23:59 23:59 Intake Total 2790 1550 Balance 2790
[2020-09-06] MEDS: MAGNESIUM HYDROXIDE SUSP 30 ML UDC PO (18:41)
[2020-09-06 22:00] VITALS: BP 121/68; PULSE 64; RESP 16; TEMP 37; O2SAT 99
[2020-09-07] VITALS (7 sets, daily range): BP systolic 112–131; BP diastolic 61–77; PULSE 63–89; RESP 14–20; TEMP 36.6–37.1; O2SAT 97–100
[2020-09-07] MEDS: HYDROcodone/acetaminophen (*CRX) 5-325 MG TABLET 1 TAB PO ×2 (06:16→18:58)
[2020-09-07] MEDS: FAMOTIDINE 20 MG/2 ML VIAL IV PUSH ×2 (08:14→21:16)
[2020-09-07] MEDS: SODIUM CHLORIDE 0.9% IV 1,000 ML 125 ML IV CONT (08:14)
[2020-09-07] MEDS: AZITHROMYCIN 250 MG TABLET BY MOUTH (08:14)
--- NOTE | 2020-09-07 09:36 | PM.PNGS ---
Progress Note: A&P Assessment and Plan (1) Abdominal pain, RUQ: Onset Date: ~09/04/20 Code(s): R10.11 - Right upper quadrant pain Status: Acute Assessment and Plan: Patient with RUQ abdominal pain and right-sided chest pain. Still having persistent pain requiring oral narcotics for control. HIDA scan showed gallbladder EF of 22%. Stool H. pylori test pending. Since she has had only minimal clinical improvement, I discussed with the patient this morning the option of having an upper endoscopy to rule out any other causes for the pain prior to considering surgery. Dr. Yates may be able to do this in the afternoon today. If the EGD is negative, then we could consider proceeding with a laparoscopic cholecystectomy, possible open, by Dr. Yates possibly tomorrow, BUT knowing that there is a possibility that she may still have pain after surgery if the gallbladder is not the primary cause. I discussed all of this with the patient and her and answered all questions. Description of the procedure, risks, benefits, indications, and expected outcomes were discussed with the patient in detail. All questions were answered. She would like to proceed with the EGD today and if this is negative, the cholecystectomy tomorrow. I discussed this with Dr. Yates and he will work on adding her onto the GI lab schedule today for upper endoscopy. I also discussed the plan with the Hospitalist today. Will make her NPO now and instructed her not to have anything to eat or drink. (2) Pneumonia: Qualifiers: Pneumonia type: due to unspecified organism Laterality: bilateral Lung location: unspecified part of lung Qualified Code(s): J18.9 - Pneumonia, unspecified organism Code(s): J18.9 - Pneumonia, unspecified organism Status: Acute Assessment and Plan: CTA with isacc. pulmonary nodules consistent with infection. Being treated with oral Azithromycin. Management per Hospitalist. Now having productive cough. (3) Monocytosis: Code(s): D72.821 - Monocytosis (symptomatic) Status: Acute (4) Pleurisy: Code(s): R09.1 - Pleurisy Status: Acute Assessment and Plan: Possibly contributing to her pain. (5) Person under investigation for COVID-19: Onset Date: Unknown Code(s): Z20.828 - Contact with and (suspected) exposure to other viral communicable diseases Status: Ruled-out Assessment and Plan: COVID test negative. Additional Plan Discussed the patient's plan of care with Dr. Yates. Subjective Subjective Date/Time Seen: 09/07/20 08:36 Patient reports: no new complaints, still having pain and bowel movement Interval history: Patient seen and examined this morning. She reports still having the same type of RUQ abdominal pain and right-sided chest pain through the night and this morning. She was able to sleep and get comfortable overnight, but states that her pain was 10/10 when she woke up this morning. She reports it has improved with oral pain medication. She also has had a bowel movement since I saw her yesterday and was able to give a stool sample for the H. pylori test. She reports a productive cough today. No other complaints at this time. Review of Systems Review of Systems: All systems reviewed & are unremarkable except as noted in HPI and below Cardiovascular: Cardiovascular: Reports as per HPI, Reports no additional cardiovascular complaints and Denies dyspnea Respiratory: Respiratory: Reports no additional respiratory complaints and Denies dyspnea Gastrointestinal: Gastrointestinal: Reports as per HPI, Reports no additional gastrointestinal complaints, Denies nausea and Denies vomiting Exam Const: General: no acute distress, alert and awake Orientation/consciousness: patient oriented x3 Cardio: Rate: regular rate Rhythm: regular rhythm GI: Inspection: non-distended GI Palp: Yes Soft to palpation, Yes Tenderness to palpation present (GI
[2020-09-07] MEDS: HYDROmorphone HCL INJ (*CRX) 1 MG/ML SYR 0.5 MG IV PUSH (11:20)
--- NOTE | 2020-09-07 12:38 | PM.IMPN ---
Progress Note: A&P Assessment and Plan (1) Pleurisy: Code(s): R09.1 - Pleurisy Status: Acute Assessment and Plan: Patient presents with right lower ribcage/RUQ pain that is worse with deep breaths. CTA chest shows no pulmonary embolism or pneumothorax; demonstrates multiple pulmonary nodules with surrounding ground glass appearance consistent with infection/inflammation. COVID negative. Working differentials at this time include pleuritis secondary to pneumonia, gallbladder dysfunction, peptic ulcer disease. Continue analgesics as needed. Avoid NSAIDs at this time as PUD is considered. Could possibly consider starting NSAID therapy following results of EGD. continue to treat for pneumonia, continue pepcid. Incentive spirometry. (2) Abdominal pain, RUQ: Onset Date: ~09/04/20 Code(s): R10.11 - Right upper quadrant pain Status: Acute Assessment and Plan: Abdominal pain vs. pleuritic pain. Etiology is unclear, see above. CT abdomen/pelvis shows no acute abdominal pathology. EKG normal and troponin normal. Lipase normal. HIDA scanned showed gallbladder EF of 22% General surgery is following and Dr Yates's recommendations are appreciated. Plan for EGD this afternoon to rule out peptic ulcer disease or other possible causes for pain. If negative, will likely proceed with lap vanessa. Continue Pepcid SARAH is pending. H. Pylori stool antigen is pending. NPO for EGD. Advance diet following per surgery recommendations. (3) Pneumonia: Qualifiers: Pneumonia type: due to unspecified organism Laterality: bilateral Lung location: unspecified part of lung Qualified Code(s): J18.9 - Pneumonia, unspecified organism Code(s): J18.9 - Pneumonia, unspecified organism Status: Acute Assessment and Plan: FEI pulmonary nodules on CTA appear consistent with infection. Afebrile. No leukocytosis. No cough or sputum production. Continue azithromycin (day 4). Plan to complete 5 days Incentive spirometry as above. (4) COVID-19 ruled out by laboratory testing: Code(s): Z03.818 - Encounter for observation for suspected exposure to other biological agents ruled out Status: Acute Assessment and Plan: Tested negative on 09/04/2020. Subjective Date/time seen: 09/07/20 12:38 Interval history: date of service: 09/07/2020 Blanca Johnson is a healthy 24-year-old female who is seen in follow-up for right upper quadrant pain. Currently her pain is controlled after receiving medications, but earlier today she noted 10/10 pain. Pain is worse with deep inspiration. When pain is severe, she feels restless but pain is not relieved by positional changes. Describes pain as sharp. It has radiated to the right shoulder blade and now towards the epigastrium. Denies abdominal cramping or bloating. She had a formed BM this morning. No urinary symptoms. She has poor appetite. She is able to ambulate to the restroom without difficulty. She endorses occasional sweats but denies fever, chills, nausea, vomiting, dizziness, lightheadedness. Denies SOB, cough, or CP. Review of Systems Review of Systems: All systems reviewed & are unremarkable except as noted in HPI and below Exam Narrative: Exam Narrative: Ms. Johnson is a well-nourished, well-appearing 24-year-old female who is lying supine in bed. She appears comfortable and is in NARD. HR 82, BP 131/77, R 16, T 98.3?, 98% on room Neuro: awake, alert and oriented x4, speech clear, no focal neuro deficits noted HEENMT: normocephalic, atraumatic, EOMI, sclerae anicteric, moist oral mucosa, tongue midline, nares patent Neck: supple, no lymphadenopathy Respiratory: clear to auscultation bilaterally, nonlabored breathing Cardio: regular rate, regular rhythm with S1-S2 Abdomen: nondistended, normoactive bowel sounds, soft, mildly tender to palpation of epigastric region and RUQ, no rigidity or guarding, no supra
--- NOTE | 2020-09-07 14:13 | WPDHPUPDATE1 ---
History and Physical Update Update Date/Time: 09/07/20 14:13 History and Physical has been reviewed, including an updated exam of the patient. There are NO changes in the patient's condition. Risks, benefits, and alternatives Soft ago gastroduodenoscopy with possible biopsy for H pylori have been discussed and questions answered. Patient agrees to proceed with procedure.
--- NOTE | 2020-09-07 14:14 | SUR.PREOP ---
Patient had urine done in ER On 09-04-20. It was negative. Dr Burnette aware and does not want another urine completed before EGD.
[2020-09-07] MEDS: LACTATED RINGERS 1,000 ML 150 ML IV CONT (14:15)
--- NOTE | 2020-09-07 14:49 | WPDANESEPPF ---
Anes - Initial Pre Proc Eval Procedure: Operation Date: 09/07/20 16:00 Proposed Procedures p Esophagogastroduodenoscopy - Peter Yates MD Date/Time: 09/07/20 14:49 Surgeon: Ana Rosa Milton PA-C Pre Op Diagnosis: RUQ pain, COVID PUI, Pneumonia Patient Data Age: 24 Gender: F Height: 5 ft 5 in Weight: 72.8 kg Last Vital Signs Temp 97.9 F 09/07/20 14:11 Pulse 79 09/07/20 14:11 Resp 20 09/07/20 14:11 BP 125/62 09/07/20 14:11 Pulse Ox 98 09/07/20 14:11 Allergies Allergy/AdvReac Type Severity Reaction Status Date / Time cefixime [From Suprax] Allergy Unknown Verified 09/04/20 21:14 Home Medications Medication Instructions Recorded Confirmed Type azithromycin See Rx Instructions .ROUTE 09/04/20 09/05/20 Rx .COMPLEX #6 tablet naproxen 500 mg PO BID #20 tablet 09/04/20 09/05/20 Rx Laboratory Tests 09/06/20 23:01 Stool H. pylori Ag Pending Patient hx anesthesia problems: none Family hx anesthesia problems: none PMFSH Past Medical History Medical History (Updated 09/07/20 @ 14:49 by Anoop Burnette MD) GERD (gastroesophageal reflux disease) Healthy female adult Surgical History Surgical History No history of previous surgery Social History Social History Smoking status: Never smoker Alcohol intake: never Substance use: never Substance use type: does not use Gender identity (if verbalized by the patient): Female Spiritual care concerns: No Anes - Eval Final PreProcedure Day of Procedure 09/07/20 14:49 Patient weight: normal Heart: regular rate and rhythm Lungs: clear to auscultation Airway: Mallampati scale class II Neurological: alert and oriented Last oral intake: >/= 8 hours ASA classification: II Emergent: no Anesthetic plan: proceed Anesthesia type and monitoring: general GIVS and standard monitoring Informed Consent: The patient's anesthetic plan and its attendant risks and benefits were discussed with the patient/family/POA. Questions were solicited and answers provided to the satisfaction of the patient/family/POA.
[2020-09-07 16:44] LABS: Alanine Aminotransferase 10 U/L (4-35); Albumin Level 4.2 g/dL (3.5-5.1); Alkaline Phosphatase 86 U/L (38-126); Aspartate Amino Transferase 29 U/L (14-36); Bilirubin,Total 0.3 mg/dL (0.2-1.3)
--- NOTE | 2020-09-07 17:00 | PC.NURSE ---
pt arrived back from having an egd ,, a/ox3 at 1630
[2020-09-07] MEDS: SODIUM CHLORIDE 0.9% IV 1,000 ML 100 ML IV CONT (19:43)
[2020-09-08] VITALS (10 sets, daily range): BP systolic 102–129; BP diastolic 66–81; PULSE 59–96; RESP 12–20; TEMP 36.1–37.2; O2SAT 96–100
[2020-09-08] MEDS: HYDROmorphone HCL INJ (*CRX) 1 MG/ML SYR 0.5 MG IV PUSH ×4 (00:32→11:08)
[2020-09-08] MEDS: SODIUM CHLORIDE 0.9% IV 1,000 ML 100 ML IV CONT ×2 (05:20→20:24)
[2020-09-08 06:40] LABS: Hemoglobin 11.4 g/dL (12.0-15.0); Mean Corpuscular HGB Conc 33.5 g/dl (32-36); Mean Corpuscular Hemoglobin 28.6 pg (26-34); Mean Corpuscular Volume 85.4 fl (80-100); Mean Platelet Volume 9.3 fl (7.4-10.4); Platelet Count Result 322 k/mm3 (150-375); Red Blood Count 3.98 M/mm3 (4.2-5.4); Red Cell Distribution Width 13.4 % (11.5-14.5); White Blood Count 5.4 K/mm3 (4.5-10.0)
[2020-09-08 06:50] LABS: Lipase 107 U/L (23-300)
[2020-09-08 06:51] LABS: Anion Gap 9 mmol/L (8-16); Blood Urea Nitrogen 4 mg/dL (7-17); Calcium 8.7 mg/dL (8.4-10.2); Carbon Dioxide 22 mmol/L (22-30); Chloride 108 mmol/L (98-107); Estimated CRCL calculation 129 ml/min; Estimated Glomerular Filt Rate > 60; Glucose 73 mg/dL (65-105); Potassium 3.9 mmol/L (3.4-5.0); Sodium 139 mmol/L (137-145)
[2020-09-08] MEDS: FAMOTIDINE 20 MG/2 ML VIAL IV PUSH ×2 (08:11→20:24)
--- NOTE | 2020-09-08 08:22 | WPDANESPN ---
Anes - Prog Note Post-Op Date/Time: 09/08/20 08:22 Cardiovascular status: normal Respiratory status: normal Airway patency: baseline Mental status: baseline Post-Op hydration status: normal Vital Signs: Last Vital Signs Temp 37.2 C 09/08/20 05:49 Pulse 71 09/08/20 05:49 Resp 18 09/08/20 05:49 BP 114/67 09/08/20 05:49 Pulse Ox 98 09/08/20 05:49 Pain Score (VAS): 0 I/O: Intake & Output 09/07/20 09/08/20 09/08/20 23:59 07:59 15:59 Intake Total 1145 1650 Balance 1145 1650 Laboratory Tests 09/08/20 05:39 09/08/20 05:39 09/07/20 09/07/20 09/08/20 16:13 16:13 05:39 WBC RBC Hgb Hct MCV MCH MCHC RDW Plt Count MPV Sodium Potassium Chloride Carbon Dioxide Anion Gap BUN Creatinine Estim Creat Clear Calc Estimated GFR Glucose Calcium Total Bilirubin 0.3 Direct Bilirubin 0.0 AST 29 ALT 10 Alkaline Phosphatase 86 Total Protein 7.0 Albumin 4.2 Lipase 107 Blood Type A Positive Antibody Screen Negative 09/08/20 09/08/20 05:39 05:39 WBC 5.4 RBC 3.98 L Hgb 11.4 L Hct 34.0 L MCV 85.4 MCH 28.6 MCHC 33.5 RDW 13.4 Plt Count 322 MPV 9.3 Sodium 139 Potassium 3.9 Chloride 108 H Carbon Dioxide 22 Anion Gap 9 BUN 4 L Creatinine 0.50 L Estim Creat Clear Calc 129 Estimated GFR > 60 Glucose 73 Calcium 8.7 Total Bilirubin Direct Bilirubin AST ALT Alkaline Phosphatase Total Protein Albumin Lipase Blood Type Antibody Screen Post-procedural complaints: none Patient Feedback: Patient satisfied with anesthetic care.
--- NOTE | 2020-09-08 10:29 | PM.IMPN ---
Progress Note: A&P Assessment and Plan (1) Pleurisy: Code(s): R09.1 - Pleurisy Status: Acute Assessment and Plan: Patient presents with right lower ribcage/RUQ pain that is worse with deep breaths. CTA chest shows no pulmonary embolism or pneumothorax; demonstrates multiple pulmonary nodules with surrounding ground glass appearance consistent with infection/inflammation. COVID negative. Working differentials at this time include pleuritis secondary to pneumonia or gallbladder dysfunction. Peptic ulcer disease ruled out based on EGD. Continue analgesics as needed. continue to treat for pneumonia, continue pepcid. Incentive spirometry. (2) Abdominal pain, RUQ: Onset Date: ~09/04/20 Code(s): R10.11 - Right upper quadrant pain Status: Acute Assessment and Plan: Abdominal pain vs. pleuritic pain. Etiology is unclear, see above. CT abdomen/pelvis shows no acute abdominal pathology. EKG normal and troponin normal. Lipase normal. HIDA scanned showed gallbladder EF of 22%. EGD revealed duodenitis, unlikely to be contributing to patient's severe pain. General surgery is following and Dr Yates's recommendations are appreciated. Plan for laparascopic cholecystectomy this afternoon. Analgesics as needed Continue Pepcid SARAH is pending. H. Pylori stool antigen is pending. NPO for surgery. Advance diet following per surgery recommendations. (3) Pneumonia: Qualifiers: Pneumonia type: due to unspecified organism Laterality: bilateral Lung location: unspecified part of lung Qualified Code(s): J18.9 - Pneumonia, unspecified organism Code(s): J18.9 - Pneumonia, unspecified organism Status: Acute Assessment and Plan: FEI pulmonary nodules on CTA appear consistent with infection. Afebrile. No leukocytosis. No cough or sputum production. Patient will complete 5 days of Azithromycin today. Incentive spirometry as above. (4) Duodenitis: Code(s): K29.80 - Duodenitis without bleeding Status: Acute Assessment and Plan: Noted on EGD. [place] to be unlikely to contribute to such severe RUQ pain. Begin daily PPI for 1-2 weeks. Will begin PO Protonix following surgery. (5) COVID-19 ruled out by laboratory testing: Code(s): Z03.818 - Encounter for observation for suspected exposure to other biological agents ruled out Status: Acute Assessment and Plan: Tested negative on 09/04/2020. Subjective Date/time seen: 09/08/20 10:29 Interval history: Date of service: 09/08/2020 Blanca Johnson is a healthy 24-year-old female who is seen in follow-up for right upper quadrant pain. She underwent EGD yesterday with no significant findings to explain pain, and therefore she will undergo laparoscopic cholecystectomy this afternoon. She notes that she was in quite a bit of pain this morning with associated frontal headache. Both right upper quadrant pain and headache resolved with analgesics. She reports she was able to get better sleep last night, only waking every 2-3 hours in pain, which is an improvement for her. Pain is still radiating to right shoulder blade. She denies any epigastric pain today. She had a small episode of loose stool last night. She is still having trouble taking deep breaths given her pain, but she denies shortness of breath, chest pain, wheezing, cough, or palpitations. Denies urinary symptoms. No fevers, chills, nausea, vomiting, dizziness, lightheadedness. She tolerated full liquids last night and is now NPO for surgery. Review of Systems Review of Systems: All systems reviewed & are unremarkable except as noted in HPI and below Exam Narrative: Exam Narrative: Ms. Johnson is a well-nourished, well-appearing 24-year-old female who is lying supine in bed. She appears comfortable and is in NARD. HR 71, BP 114/67, RR 18, T 98.9?, 98% on room Neuro: awake, alert and oriented x4, s
--- NOTE | 2020-09-08 11:41 | WPDHPUPDATE1 ---
History and Physical Update Update Date/Time: 09/08/20 11:41 History and Physical has been reviewed, including an updated exam of the patient. There are changes in the patient's condition. Patient had a EGD yesterday and TANIA test showed no positivity for H pylori. H pylori antigen from the stool test is still pending. Patient is still having some right lower anterior chest / right upper quadrant abdominal pain today. It is not quite as bad as it was previously. Risks, benefits, and alternatives Of a laparoscopic cholecystectomy, possible intraoperative cholangiogram, possible open cholecystectomy have been discussed and questions answered. Patient agrees to proceed with procedure.
[2020-09-08] MEDS: ACETAMINOPHEN 500 MG TABLET 1000 MG PO (13:05)
[2020-09-08] MEDS: KETOROLAC 15 MG/ML VIAL (*BKC) IV PUSH (13:07)
--- NOTE | 2020-09-08 13:09 | SUR.PREOP ---
pt informed delay in surgery,called spouse to update.
--- NOTE | 2020-09-08 13:11 | WPDANESEPPF ---
Anes - Initial Pre Proc Eval Procedure: Operation Date: 09/07/20 16:00 Proposed Procedures p Esophagogastroduodenoscopy - Peter Yates MD Operation Date: 09/08/20 14:00 Proposed Procedures p Laparoscopic Cholecystectomy, Possible Intraoperative Cholangiograms, Possible Open - Peter Yates MD Date/Time: 09/08/20 13:11 Surgeon: Ana Rosa Milton PA-C Pre Op Diagnosis: RUQ pain, COVID PUI, Pneumonia Patient Data Age: 24 Gender: F Height: 1.65 m Weight: 72.8 kg Last Vital Signs Temp 37.2 C 09/08/20 05:49 Pulse 71 09/08/20 05:49 Resp 18 09/08/20 05:49 BP 114/67 09/08/20 05:49 Pulse Ox 98 09/08/20 05:49 Allergies Allergy/AdvReac Type Severity Reaction Status Date / Time cefixime [From Suprax] Allergy Unknown Verified 09/04/20 21:14 Home Medications Medication Instructions Recorded Confirmed Type azithromycin See Rx Instructions .ROUTE 09/04/20 09/05/20 Rx .COMPLEX #6 tablet naproxen 500 mg PO BID #20 tablet 09/04/20 09/05/20 Rx Laboratory Tests 09/07/20 09/07/20 09/08/20 16:13 16:13 05:39 WBC RBC Hgb Hct MCV MCH MCHC RDW Plt Count MPV Sodium Potassium Chloride Carbon Dioxide Anion Gap BUN Creatinine Estim Creat Clear Calc Estimated GFR Glucose Calcium Total Bilirubin 0.3 mg/dL mg/dL (0.2-1.3) Direct Bilirubin 0.0 mg/dL mg/dL (0-0.3) AST 29 U/L U/L (14-36) ALT 10 U/L U/L (4-35) Alkaline Phosphatase 86 U/L U/L (38-126) Total Protein 7.0 g/dL g/dL (6.3-8.2) Albumin 4.2 g/dL g/dL (3.5-5.1) Lipase 107 U/L U/L (23-300) Blood Type A Positive Antibody Screen Negative 09/08/20 09/08/20 05:39 05:39 WBC 5.4 K/mm3 K/mm3 (4.5-10.0) RBC 3.98 M/mm3 L M/mm3 (4.2-5.4) Hgb 11.4 g/dL L g/dL (12.0-15.0) Hct 34.0 % L % (37.0-47.0) MCV 85.4 fl fl (80-100) MCH 28.6 pg pg (26-34) MCHC 33.5 g/dl g/dl (32-36) RDW 13.4 % % (11.5-14.5) Plt Count 322 k/mm3 k/mm3 (150-375) MPV 9.3 fl fl (7.4-10.4) Sodium 139 mmol/L mmol/L (137-145) Potassium 3.9 mmol/L mmol/L (3.4-5.0) Chloride 108 mmol/L H mmol/L (98-107) Carbon Dioxide 22 mmol/L mmol/L (22-30) Anion Gap 9 mmol/L mmol/L (8-16) BUN 4 mg/dL L mg/dL (7-17) Creatinine 0.50 mg/dL L mg/dL (0.7-1.0) Estim Creat Clear Calc 129 ml/min ml/min Estimated GFR > 60 (59 - ) Glucose 73 mg/dL mg/dL (65-105) Calcium 8.7 mg/dL mg/dL (8.4-10.2) Total Bilirubin Direct Bilirubin AST ALT Alkaline Phosphatase Total Protein Albumin Lipase Blood Type Antibody Screen Patient hx anesthesia problems: none Family hx anesthesia problems: none PMFSH Past Medical History Medical History (Updated 09/08/20 @ 13:15 by Miguel Pope DO) Healthy female adult Surgical History Surgical History No history of previous surgery Social History Social History Smoking status: Never smoker Alcohol intake: never Substance use: never Substance use type: does not use Gender identity (if verbalized by the patient): Female Spiritual care concerns: No Anes - Eval Final PreProcedure Day of Procedure 09/08/20 13:11 Patient weight: overweight Heart: regular rate and rhythm Lungs: clear to auscultation and normal air movement Airway: Mallampati scale class II Neurological: alert and o
--- NOTE | 2020-09-08 13:51 | SUR.PREOP ---
dr luna waived test for this procedure done in several days ago and neg.
[2020-09-08] MEDS: CLINDAMYCIN 900 MG/D5W 50 ML 900 MG/50 ML PIGGYBACK 50 MG IVPB (15:34)
--- NOTE | 2020-09-08 15:49 | SUR.PREOP ---
1510 taken to bathroom to void
--- NOTE | 2020-09-08 16:40 | PM.PROC ---
Procedure Note - Detailed Date of procedure: 09/08/20 Pre-op diagnosis: RUQ pain, COVID PUI, Pneumonia Chronic Cholecystitis with biliary dyskinesia Post-op diagnosis: same Procedure performed: Laparoscopic Cholecystectomy Description of procedure: Patient was seen preoperatively in the holding area and risks, benefits and alternatives confirmed. Patient was taken to the operating room and general anesthesia was induced. A time out was then preformed with the surgery team confirming patient and site of surgery. The abdomen was prepped and draped in the usual sterile fashion. Incision was made in and just below the umbilicus with an 11 blade knife. I placed 2 stay sutures of O- Vicryl on either side of the mid-line fascia beneath the umbilicus and was then was able to slide in the Fuchs cannula through the fascial defect into the peritoneum. First under low flow and then under high flow the abdomen was insufflated with carbon dioxide never exceeding a pressure of 14. Three 5 mm trocars were then introduced under direct vision. The following trocars were introduced under direct vision: a 5 mm in the epigastrium and two 5 mm trocars along the right costal margin laterally in the subcostal area. There were no adhesions to the underside of the gallbladder. I then carefully used the L-shaped cautery and the [place] dissector to dissect out the triangle of [place]. I then was able to dissect out both the cystic duct and cystic artery and identify a window of safety. The gall bladder was grasped and the cystic duct and artery were dissected free and clipped with an 5 mm endo-clip manager supply chain. The cystic duct and artery were clipped with use of 2 clips on the patient's side 1 on the gallbladder side utilizing a 5 mm endoclip-manager supply chain. The cystic duct was then transected. The cystic artery was also transected at this point. The gall bladder was removed using electrocautery. As I dissected up the back of the gallbladder a posterior branch of cystic artery was identified was clipped on 1 time on the patient's side against the liver and divided with cautery on the other side. Following this we completed dissection of the gallbladder off its bed in the liver and then removed from the abdomen using a large 10 mm grasper via the umbilical incision. The trocars were removed visualizing hemostasis and the remaining gas evacuated. The large trocar site at the umbilicus was closed with use of the 2 stay sutures of 0 Vicryl mentioned above and also a figure of 8 O-Vicryl suture. The 2 stay sutures mentioned above on either side of the fascia were also tied together to help approximate this midline fascia. Further local anesthetic was placed into each incision for postop pain control. The skin incisions were closed with subcuticular suture of 4-0 Monocryl. Surgical glue then was applied to all the incisions. Patient tolerated the procedure well was taken to the recovery room in good condition. Implants: none Anesthesia: GETA Surgeon: Peter Ytaes MD Shoe Sprayer: Marian MARIN, OR or first assist registered nurse Estimated blood loss (mL): 5 Drains: No Packing: No Pathology: yes (Gallbladder) Complications: No immediate complications Condition: stable Disposition: PACU Findings: No palpable stones in the gallbladder upon removal. The gallbladder did not appear acutely inflamed.
[2020-09-08] MEDS: LACTATED RINGERS 1,000 ML 30 ML IV CONT ×2 (16:42)
[2020-09-08] MEDS: fentaNYL CITRATE INJ (*CRX) 100 MCG/2 ML VIAL 25 MCG IV PUSH (17:07)
[2020-09-08] MEDS: AZITHROMYCIN 250 MG TABLET PO (18:38)
--- NOTE | 2020-09-08 18:46 | PC.NURSE ---
Patient arrived from OR. I went to assess patient's laparoscopic sites and 2 of them were glued to her gown. After getting it unattached, some glued did come off her sites. I paged workers compensation claims adjuster surgeon. Dr. Cruz returned my call and stated to add steri-strips over the 2 sites.
[2020-09-08] MEDS: SENNA/DOCUSATE SODIUM TABLET 2 TAB PO (20:24)
[2020-09-08] MEDS: ACETAMINOPHEN 500 MG TABLET PO (23:26)
[2020-09-09] VITALS: BP 124/65; PULSE 75; RESP 18; TEMP 37.1; O2SAT 96
[2020-09-09] MEDS: HYDROcodone/acetaminophen (*CRX) 5-325 MG TABLET 1 TAB PO (03:03)
[2020-09-09 04:00] VITALS: BP 123/71; PULSE 62; RESP 18; TEMP 36.3; O2SAT 97
[2020-09-09 06:07] LABS: Hematocrit 33.6 % (37.0-47.0); Hemoglobin 11.7 g/dL (12.0-15.0); Mean Corpuscular HGB Conc 34.8 g/dl (32-36); Mean Corpuscular Hemoglobin 29.4 pg (26-34); Mean Corpuscular Volume 84.4 fl (80-100); Mean Platelet Volume 9.3 fl (7.4-10.4); Platelet Count Result 342 k/mm3 (150-375); Red Blood Count 3.98 M/mm3 (4.2-5.4); Red Cell Distribution Width 13.2 % (11.5-14.5); White Blood Count 7.2 K/mm3 (4.5-10.0)
[2020-09-09 06:20] LABS: Alanine Aminotransferase 21 U/L (4-35); Albumin Level 3.5 g/dL (3.5-5.1); Alkaline Phosphatase 71 U/L (38-126); Anion Gap 9 mmol/L (8-16); Aspartate Amino Transferase 35 U/L (14-36); Bilirubin,Total 0.2 mg/dL (0.2-1.3); Blood Urea Nitrogen 4 mg/dL (7-17); Calcium 8.8 mg/dL (8.4-10.2); Carbon Dioxide 23 mmol/L (22-30); Chloride 108 mmol/L (98-107); Estimated CRCL calculation 129 ml/min; Estimated Glomerular Filt Rate > 60; Glucose 123 mg/dL (65-105); Potassium 4.2 mmol/L (3.4-5.0); Sodium 140 mmol/L (137-145)
[2020-09-09] MEDS: ACETAMINOPHEN 500 MG TABLET PO (07:27)
[2020-09-09 08:00] VITALS: BP 120/70; PULSE 57; RESP 20; TEMP 36.5; O2SAT 97
[2020-09-09] MEDS: FAMOTIDINE 20 MG/2 ML VIAL IV PUSH (09:23)
[2020-09-09 09:25] VITALS: PULSE 60; RESP 18; O2SAT 97
--- NOTE | 2020-09-09 09:41 | PM.DS ---
DS: Admitting Diagnosis Admitting Diagnosis Admitting Diagnosis: RUQ pain, COVID PUI, Pneumonia DS: Discharge Diagnosis Discharge Diagnosis (1) Chronic cholecystitis without calculus: Code(s): K81.1 - Chronic cholecystitis Status: Acute Assessment and Plan: UNDERWENT LAPAROSCOPIC CHOLECYSTECTOMY ON 09/08/2020 (2) Duodenitis: Code(s): K29.80 - Duodenitis without bleeding Status: Acute Assessment and Plan: DIAGNOSED BY EGD 09/07/2020 DS: Summary Time Spent with Patient Time attestation: Total time spent providing and/or coordinating discharge services: the patient is a healthy 24-year-old woman who came to the emergency room on 09/04/2020. She had a thorough workup for right upper quadrant abdominal pain including CT a which was all negative. She had a right upper quadrant ultrasound which was negative. Patient was admitted for pain control. She had a HIDA scan on 09/06/2020. This showed a decreased ejection fraction of only 22%. She had an EGD on 09/07 which was negative except for some duodenitis. She underwent laparoscopic cholecystectomy per Dr. Yates on 09/08/2020. She was observed overnight. She was feeling great the day after surgery and is discharged now in good condition. She did have testing for COVID-19 and this was negative. DS: Data Data Completed and Pending Pending studies at discharge: Pending at discharge 09/07/20 15:05 Surgical [PTH] Routine 09/08/20 16:06 Surgical [PTH] Routine Labs on day of discharge: Labs from last 24 hours 09/09/20 09/09/20 05:13 05:13 WBC 7.2 RBC 3.98 L Hgb 11.7 L Hct 33.6 L MCV 84.4 MCH 29.4 MCHC 34.8 RDW 13.2 Plt Count 342 MPV 9.3 Sodium 140 Potassium 4.2 Chloride 108 H Carbon Dioxide 23 Anion Gap 9 BUN 4 L Creatinine 0.50 L Estim Creat Clear Calc 129 Estimated GFR > 60 Glucose 123 H Calcium 8.8 Total Bilirubin 0.2 AST 35 ALT 21 Alkaline Phosphatase 71 Total Protein 7.0 Albumin 3.5 Discharge Plan Discharge Attending physician on discharge: Gil Earl Consulting providers: Ga Joyner ; Peter Yates Discharging Clinician: Hemal,Nick A. Anticipated Discharge Date/Time: 09/09/20 09:51 Patient Disposition: Home, Self-Care Activity: may shower, no straining and as tolerated Diet: as tolerated and low fat Wound Care Instructions: incision open to air Discharge Instructions: 1. May shower the day after surgery over incisions. 2. Call office for: -Wound increasingly painful or bleeding -Vomiting -Fever of greater than 101 degrees 3. Expect some blood on dressing and old blood on skin. 4. If no bowel movement for three days, take 1 oz. (30 ml) Milk of Magnesia, if no results, take Fleets enema. 5. No heavy lifting > 15-20 pounds for 2 weeks. 6. No driving for 3 days or while taking narcotic pain medications. 7. Up walking 10-30 minutes three times per day. 8. Resume previous home medications. 9. Follow-up 10-14 days in office for wound check or as previously scheduled. 10. Oral pain medications prescription to be sent home with patient. 11. NUTRITION: Start out by drinking fluids and increase your diet as tolerated. If you experience nausea, try dry toast, crackers, and 7-UP. If nausea or vomiting persists, contact your surgeon?s office. Patient Instructions: Antibiotic Form, Cholecystitis (GEN), Pain Management (GEN), HIDA Scan (DC), Upper Endoscopy (DC), Laparoscopic Cholecystectomy (GEN) Stand Alone Forms: General Discharge Information Follow-up/Referrals: Peter Yates MD [Physician] - 2 Weeks Discharge Medications: New hydrocodone-acetaminophen 5-325 mg tablet 1 - 2 tablet PO Q6H PRN (Reason: pain) Qty: 7 RF: 0 famotidine [Pepcid] 20 mg tablet 20 mg PO BID Qty: 60 RF: 0
--- NOTE | 2020-09-09 10:51 | PM.IMPN ---
Progress Note: A&P Assessment and Plan (1) Chronic cholecystitis without calculus: Code(s): K81.1 - Chronic cholecystitis Status: Acute Assessment and Plan: Patient presented with right upper quadrant pain. Etiology initially unclear with differentials including pleurisy from pneumonia, gastric ulcer disease, or chronic cholecystitis. CT abdomen/pelvis showed no acute abdominal pathology. EKG troponins normal. Lipase normal. HIDA scan showed gallbladder EF of 22%. EGD revealed duodenitis, be contributing patient's severe pain. She underwent laparoscopic cholecystectomy on 09/08/[address] Yates. Her pain was relieved following procedure. Administer simethicone for gas related discomfort Patient will need to follow-up with Dr. Yates. She is visiting family in the area from [place]. She plans to stay here for 1 more week and attend follow-up appointment in 1 week. She will continue low-fat diet (2) Pleurisy: Code(s): R09.1 - Pleurisy Status: Deleted Assessment and Plan: Patient presented with right lower ribcage/RUQ pain that worsened with inspiration. CTA chest showed no pulmonary embolism or pneumothorax; demonstrated multiple pulmonary nodules with surrounding ground glass appearance consistent with infection/inflammation. COVID negative. She was treated for pneumonia. Her symptoms were to be related to gallbladder dysfunction and she had complete resolution of symptoms following surgery. (3) Pneumonia: Qualifiers: Laterality: bilateral Lung location: unspecified part of lung Pneumonia type: due to unspecified organism Qualified Code(s): J18.9 - Pneumonia, unspecified organism Code(s): J18.9 - Pneumonia, unspecified organism Status: Deleted Assessment and Plan: FEI pulmonary nodules on CTA appear consistent with infection. Afebrile. No leukocytosis. No cough or sputum production. She received 5 days of azithromycin. (4) Duodenitis: Code(s): K29.80 - Duodenitis without bleeding Status: Acute Assessment and Plan: Noted on EGD performed on 09/07 to evaluate for gastric ulcers. [place] to be unlikely to contribute to her severe RUQ pain. Continue BID pepcid. (5) COVID-19 ruled out by laboratory testing: Code(s): Z03.818 - Encounter for observation for suspected exposure to other biological agents ruled out Status: Inactive Assessment and Plan: Tested negative on 09/04/2020. Additional Plan Patient much improved and eager for discharge. Given overall improvement, she was determined to no longer require inpatient care and felt to be stable for discharge. We discussed worrisome signs and symptoms for which to return and she was educated on her medications. Subjective Date/time seen: 09/09/20 10:51 Interval history: Date of service: 09/09/2020 Blanca Johnson is a healthy 24-year-old female who is seen in follow-up for right upper quadrant pain. She underwent laparoscopic cholecystectomy yesterday by Dr. Yates. Her pain has improved this procedure. She denies any pain with inspiration. Her only complaint is this time is a bit of discomfort related to gas. She has been eating. She denies nausea, vomiting, fever, chills. She is passing gas. She is eager for return home. Review of Systems Review of Systems: All systems reviewed & are unremarkable except as noted in HPI and below Exam Narrative: Exam Narrative: Ms. Johnson is a well-nourished, well-appearing 24-year-old female who is lying supine in bed. She appears comfortable and is in NARD. Neuro: awake, alert and oriented x4, speech clear, no focal neuro deficits noted HEENMT: normocephalic, atraumatic, EOMI, sclerae anicteric, moist oral mucosa, tongue midline, nares patent Neck: supple, no lymphadenopathy Respiratory: clear to auscultation bilaterally, nonlabored breathing Cardio: regular rate, regular rhythm with S1-S
[2020-09-11 21:27] LABS: H pylori Ag Stool Not Detected (Not Detected)
== END 2020-09-09 11:33 | disposition home or self-care (01) | DRG 419 ==
LOC: ANHED 23:55 → ANH3MEDSUR 09-05 00:42
PROVIDERS: Physician Assistant; Surgery; Admitting Provider Family Medicine; Emergency Provider Emergency Medicine; Visit Provider Surgery
PROC: 0DJ08ZZ Inspection of Upper Intestinal Tract, Via Natural or Artificial Opening Endoscopic (ICD-10-PCS; CPT 43235; principal; 2020-09-07 16:00)
PROC: 0FT44ZZ Resection of Gallbladder, Percutaneous Endoscopic Approach (ICD-10-PCS; CPT 47562; principal; 2020-09-08 14:00)
DX: K81.1 Chronic cholecystitis (principal); K29.80 Duodenitis without bleeding; K82.8 Other specified diseases of gallbladder; Z20.828 Contact with and (suspected) exposure to other viral communicable diseases
CPT/HCPCS: 36415; 74177; 78227; 80048; 80053; 80076; 83690; 83735; 84484; 85025; 85027; 86038; 86308; 86850; 86900; 86901; 87081; 87338; 88304; 88305; 93005; 96361; 96365; 96374; 96375; 96376; 99285; A9270; A9537; G0378; J0131; J1100; J1170; J1885; J2250; J2270; J2405; J2704; J2710; J2805; J3010; J7030; J7120; Q9967